=== PATIENT | male | born 1965 | race African-American/Black ===

== ENCOUNTER 2018-11-10 12:27 | Observation (INO) | payer SELFPAY ==
[2018-11-10] MEDS ORDERED: hydrALAZINE HCL 20 MG/1 ML IVP ONE ×2 (13:02→13:28)
--- NOTE | 2018-11-10 13:11 | ED Physician Documentation ---
General Adult - HISTORIAN Historian: patient - HPI Stated Complaint: L shoulder pain/numbness Chief Complaint: Upper Extremity Problem Additional Information: Patient is a 53-year-old black male that presents to the ER with c/o left shoulder pain with numbness down the arm. He states it started 2 days ago- denies any injury- it does not hurt to move it- however, it is a constant throbbing. Patient symptoms are concerning due to an elevated BP systolic >200 and diastolic >110. He was told he had high BP in the ER in 2014 but has never followed up on it. He is a heavy drinker (especially on the weekends) and moderate drinking thru the week. He smokes 1/2 ppd. Mom and brother have both from [place]. Patient does not seem concerned about BP. He denies any chest pain, shortness of breath, episodes of slurred speech, headaches or weakness to either extremity. 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 denies: headache, dizziness, difficulty with speech - PAST HX Past History: hypertension (was told in 2014 he had high blood pressure (never followed up)) Other History: none Surgeries/Procedures: none Immunizations: UTD Allergies/Adverse Reactions: Allergies Allergy/AdvReac Type Severity Reaction Status Date / Time No Known Allergies Allergy Verified 11/10/18 13:00 Home Medications: Ambulatory Orders Medication Instructions Recorded Hydrochlorothiazide 12.5 mg PO DAILY #30 tablet 11/10/18 Lisinopril 20 mg PO DAILY #30 tablet 11/10/18 - SOCIAL HX Smoking History: cigarettes, less than 1 pack/day Alcohol Use: heavy Drug Use: none - FAMILY HX Family History: Yes (Mom and Brother= [place]) - VITAL SIGNS Vital Signs: Vital Signs Temp Pulse Resp BP Pulse Ox 98.6 F 75 16 199/115 98 11/10/18 12:33 11/10/18 12:33 11/10/18 12:33 11/10/18 12:33 11/10/18 12:33 Progress - Progress Progress: 17:25 Blood pressure continues to bump up over 100 diastolic after several doses of IV hypertensives- talked with patient and family and will admit patient observation and monitor blood pressure regularly and get cardiac enzymes. ED Results Lab/Radiology - Orders Orders: ED Orders Category Date Time Status Continuous EKG monitoring Q30M Care 11/10/18 12:48 Ordered Continuous Pulse Oximetry Q30M Care 11/10/18 12:[address] IV Lock 1T Care 11/10/18 12:48 Ordered CBC/PLATELET/DIFF Routine Lab 11/10/18 12:48 Ordered CMP Routine Lab 11/10/18 12:48 Ordered CREATINE KINASE Routine Lab 11/10/18 12:48 Ordered TROPONIN I (cTnI) Stat Lab 11/10/18 12:48 Ordered hydrALAZINE HCL [Apresoline] Med 11/10/18 13:02 Once 10 mg IVP NOW ONE EKG WITH COMPARISON Stat Ther 11/10/18 12:48 Ordered General Adult Physical Exam - PHYSICAL EXAM GENERAL APPEARANCE: no distress EENT: eye inspection normal, ENT inspection normal, pharynx normal, FILI NECK: normal inspection, supple. No: carotid bruit RESPIRATORY: no resp distress, chest non-tender, breath sounds normal CVS: reg rate & rhythm, heart sounds normal, equal pulses ABDOMEN: soft, normal bowel sounds BACK: normal inspection SKIN: warm/dry, normal color EXTREMITIES: normal range of motion, no evidence of injury, no edema NEURO: oriented X3, CN's nml as tested, motor nml, sensation nml, mood/affect nml, cognition normal Discharge Clincal Impression: Hypertension Condition: Good Decision to Admit: [id number] Decision Time: 17:25
[2018-11-10 13:24] LABS: EOSINOPHILS % 1.3 % (0.0-6.8); MEAN CORPUSCULAR HEMOGLOBIN 30.5 pg (28.0-34.0); NEUTROPHILS # 4.3 # k/uL (1.4-7.7)
[2018-11-10] MEDS ORDERED: LISINOPRIL 5 MG TABLET PO ONE (13:28)
[2018-11-10 13:31] LABS: eGFR (Non-African) > 60
[2018-11-10] MEDS ORDERED: LABETALOL HCL 20 MG/4 ML SYRINGE IV ONE ×3 (14:33→16:51)
[2018-11-10] MEDS ORDERED: KETOROLAC TROMETHAMINE 30 MG/1ML VIAL IV ONE (14:45)
[2018-11-10] MEDS ORDERED: ENOXAPARIN SODIUM 40 MG/0.4 ML DISP.SYRIN SQ SCH (18:00)
[2018-11-10] MEDS ORDERED: ENOXAPARIN SODIUM 40 MG/0.4 ML DISP.SYRIN SQ ONE (18:15)
[2018-11-10 18:35] VITALS: BMI 31.5
[2018-11-10] MEDS ORDERED: LISINOPRIL 10 MG TABLET PO SCH (20:00)
[2018-11-10] MEDS ORDERED: SALINE FLUSH 10 ML DISP.SYRIN IV SCH (21:00)
[2018-11-11] MEDS ORDERED: ACETAMINOPHEN 325 MG TABLET ONE (01:38)
[2018-11-11] MEDS ORDERED: ACETAMINOPHEN 325 MG TABLET PO PRN (01:49)
[2018-11-11] MEDS ORDERED: LISINOPRIL 10 MG TABLET PO ONE (05:48)
[2018-11-11] MEDS: hydroCHLOROthiazide 25 MG TABLET PO SCH ×2 (06:15)
--- NOTE | 2018-11-11 06:32 | Discharge Summary ---
Discharge Summary - Discharge Sumary Admission Date: 11/10/18 Discharge Date: 11/11/18 History of Present Illness: Patient is a 53-year-old black male that presents to the ER with c/o left shoulder pain with numbness down the arm. He states it started 2 days ago- denies any injury- it does not hurt to move it- however, it is a constant throbbing. Patient symptoms are concerning due to an elevated BP systolic >200 and diastolic >110. He was told he had high BP in the ER in 2014 but has never followed up on it. He is a heavy drinker (especially on the weekends) and moderate drinking thru the week. He smokes 1/2 ppd. Mom and brother have both from [place]. Patient does not seem concerned about BP. He denies any chest pain, shortness of breath, episodes of slurred speech, headaches or weakness to either extremity. Condition at Discharge: Stable Home Medications: Ambulatory Orders Medication Instructions Recorded Hydrochlorothiazide 12.5 mg PO DAILY #30 tablet 11/10/18 Lisinopril 20 mg PO DAILY #30 tablet 11/10/18 Cyclobenzaprine HCl [Flexeril] 5 mg PO TID PRN #30 tablet 11/11/18 Consultations this Visit: None Procedures this Visit: None Allergies/Adverse Reactions: Allergies Allergy/AdvReac Type Severity Reaction Status Date / Time No Known Allergies Allergy Verified 11/10/18 13:00 Discharge Summary: Patient is a 53-year-old male that was admitted observation to monitor blood pressure. He received a total of 20 mg of Hydralazine IV and 60 mg of Labetolol IV with some improvement- he was started on oral lisinopril and HCTZ. His blood pressure this morning improved. Cardiac enzymes and EKGs were negative. He will be discharged this morning- instructed to stop smoking and quit alcohol use. Prescription for Lisinopril and HCTZ were sent to the pharmacy. He is to keep a log of his blood pressures and take to follow up appointment. He will schedule with me within the next 2 weeks. Hospital Course: IV hypertensives, serial cardiac enzymes and EKGS, - Final Diagnosis (1) Hypertension Problems: Corrected- will start patient on Lisinopril and HCTZ Right or Left: Right
[2018-11-11] MEDS ORDERED: LISINOPRIL 5 MG TABLET PO ONE (07:00)
[2018-11-11 07:13] VITALS: BP 138/89
== END 2018-11-11 07:55 | disposition home or self-care (01) ==
LOC: ED 12:27 → SOUTH 17:39
PROVIDERS: ADMIT Nurse Practitioner Family; ATTEND Nurse Practitioner Family
DX: I10 Essential (primary) hypertension (principal); I16.0 Hypertensive urgency; F17.210 Nicotine dependence, cigarettes, uncomplicated
CPT/HCPCS: 36415; 80053; 82550; 84484; 85025; 93005; G0378; J0360; J1650; 96374; 96375; 96376; 99217; 99284